=== PATIENT | male | born 1940 | race Caucasian/White ===

== ENCOUNTER 2017-05-18 11:34 | Emergency (ER) | payer BC ==
[~2017-05-18] VITALS: Ht 175.3 cm; Wt 76.0 kg
[2017-05-18 11:41] VITALS: TEMP 36.8; Ht 175.3 cm; Wt 76.0 kg
[2017-05-18] MEDS ORDERED: SODIUM CHLORIDE 0.9% 1000ML 1,000 ML IV SCH (12:16)
[2017-05-18 12:21] VITALS: O2SAT 97
--- NOTE | 2017-05-18 12:24 | EMERGENCY ROOM VISIT NOTE ---
History Report prepared by Sylvainibe: Marta Kruger Under the Supervision of: Dr. Ezequiel Gallo D.O. First contact with patient: 12:09 Chief Complaint: STROKE SYMPTOMS Stated Complaint: TINGLING FEELING DOWN LEFT SIDE, WARM ON LT SIDE Nursing Triage Summary: Patient c/c of left sided body warmness. Patient reports that his heat turned on last night and since then his left side of his body is warm. He initially reported this as numbness; however, after assessment it is determined this as warm feeling. Negative headache, acute vision changes, nausea, vomiting, diaphoresis, fever, chills. Patient does have a stutter, which is chronic. History of Present Illness The patient is a 77 year old male who presents to the Emergency Room with complaints of possible stroke symptoms that started last night. He reports the heat unexpectedly came on in his home last night around 1999. He turned his heat off, but states the left side of his body remained "warm and tingly", like a "heat source was still coming at me". He reports he was reading and working on his laptop when the symptoms started. He denies feeling like his speech has been affected. He denies any facial droop, vision changes, headache, fevers, chills, diaphoresis, nausea, vomiting or diarrhea. The patient reports he takes no daily medications. He denies any history of an irregular heartbeat, atrial fibrillation or cardiac problems. He has never undergone any major surgery before. His PCP is Dr. Grijalva with [facility]. He denies any tobacco or drug use but does drink alcohol occasionally. Source of History: patient Onset: 1999 last night Position: other (left side of body) Timing: other (persistent) Associated Symptoms: + numbness (numbness and tingling in left side of body) , No fevers, No chills, No headache, No diaphoresis, No nausea, No vomiting, No diarrhea Review of Systems See HPI for pertinent positives & negatives. A total of 10 systems reviewed and were otherwise negative. Past Medical & Surgical Medical Problems: (1) No significant past medical history Social History Smoking Status: Never Smoker Smokeless Tobacco Use: No Alcohol Use: occasionally Drug Use: none Marital Status: single, Housing Status: lives alone Occupation Status: retired Current/Historical Medications No Active Prescriptions or Reported Meds Allergies Coded Allergies: No Known Allergies (Unverified , 05/18/17) Physical Exam Vital Signs Date Time Temp Pulse Resp B/P (MAP) Pulse Ox O2 Delivery O2 Flow Rate FiO2 05/18/17 15:14 65 16 159/88 97 05/18/17 13:34 62 21 96 05/18/17 12:34 65 96 05/18/17 12:21 97 Room Air 05/18/17 12:04 72 19 98 05/18/17 12:04 77 05/18/17 11:59 174/82 05/18/17 11:59 60 16 114/78 98 05/18/17 11:41 36.8 82 20 171/93 99 Room Air Physical Exam GENERAL: Patient is awake, alert, in no acute distress patient is resting comfortably and showing no signs of anxiety EYES: The conjunctivae are clear. The pupils are round and reactive. EARS, NOSE, MOUTH AND THROAT: The nose is without any evidence of any deformity. Mucous membranes are moist tongue is midline NECK: The neck is nontender and supple. No bruits noted to auscultation. No bruits noted to auscultation. RESPIRATORY: Normal respiratory effort is noted there is no evidence of wheezing rhonchi or rales CARDIOVASCULAR: Regular rate and rhythm noted there no murmurs rubs or gallops normal S1 normal S2 GASTROINTESTINAL: The abdomen is soft. Bowel sounds are present in all quadrants. Abdomen is nontender MUSCULOSKELETAL/EXTREMITIES: There is no evidence of gross deformity full range of motion is noted in the hips and shoulders SKIN: There is no obvious evidence of any rash. There are no petechiae, pallor or cyanosis noted. NEUROLOGIC: Patient is awake alert and oriented x3 strength is symmetric patellar reflexes are 2+ bilaterally Medical Decision & Procedures ER Provider Diagnostic Interpretation: Radiology results as stated below per my review and radiologist interpretation: CT SCAN OF THE BRAIN WITHOUT IV CONTRAST CLINICAL HISTORY: Sensation of left-sided body warmness. Clinical concern for stroke. COMPARISON STUDY: No priors. TECHNIQUE: Unenhanced axial CT scan of the brain is performed from the vertex to the skull base. CT DOSE: 638.56 mGycm FINDINGS: Brain parenchyma: There are age-related involutional changes noting mild subcortical and periventricular microangiopathic change. There is no hemorrhage, mass effect, or evidence of acute territorial ischemia by CT criteria. Salazar-white matter is preserved. No extra-axial fluid collection is seen. Ventricles, sulci, cisterns: Prominent secondary to involutional change. Intracranial vasculature: Intracranial vessels at the skull base are normal as visualized. Calvarium: Unremarkable. Sinuses and mastoids: The visualized paranasal sinuses are clear. The mastoid air cells are well pneumatized. Orbits: The bony orbits are grossly intact. IMPRESSION: There is no hemorrhage, mass effect, or evidence of acute territorial ischemia by CT criteria. Electronically signed by: Danial Alexis M.D. 05/18/2017 1:16 PM Laboratory Results 05/18/17 11:55 Red Blood Count 5.11, Mean Corpuscular Volume 94.1, Mean Corpuscular Hemoglobin 31.7, Mean Corpuscular Hemoglobin Concent 33.7, Mean Platelet Volume 12.1, Neutrophils (%) (Auto) 59.2, Lymphocytes (%) (Auto) 27.1, Monocytes (%) (Auto) 9.7, Eosinophils (%) (Auto) 3.1, Basophils (%) (Auto) 0.7, Neutrophils # (Auto) 3.48, Lymphocytes # (Auto) 1.59, Monocytes # (Auto) 0.57, Eosinophils # (Auto) 0.18, Basophils # (Auto) 0.04 05/18/17 11:55 Test 05/18/17 11:55 White Blood Count 5.87 K/uL (4.8-10.8) Red Blood Count 5.11 M/uL (4.7-6.1) Hemoglobin 16.2 g/dL (14.0-18.0) Hematocrit 48.1 % (42-52) Mean Corpuscular Volume 94.1 fL (80-100) Mean Corpuscular Hemoglobin 31.7 pg (25-34) Mean Corpuscular Hemoglobin Concent 33.7 g/dl (32-36) Platelet Count 222 K/uL (130-400) Mean Platelet Volume 12.1 fL (7.4-10.4) Neutrophils (%) (Auto) 59.2 % Lymphocytes (%) (Auto) 27.1 % Monocytes (%) (Auto) 9.7 % Eosinophils (%) (Auto) 3.1 % Basophils (%) (Auto) 0.7 % Neutrophils # (Auto) 3.48 K/uL (1.4-6.5) Lymphocytes # (Auto) 1.59 K/uL (1.2-3.4) Monocytes # (Auto) 0.57 K/uL (0.11-0.59) Eosinophils # (Auto) 0.18 K/uL (0-0.5) Basophils # (Auto) 0.04 K/uL (0-0.2) RDW Standard Deviation 47.0 fL (36.4-46.3) RDW Coefficient of Variation 13.5 % (11.5-14.5) Immature Granulocyte % (Auto) 0.2 % Immature Granulocyte # (Auto) 0.01 K/uL (0.00-0.02) Prothrombin Time 10.7 SECONDS (9.0-12.0) Prothromb Time International Ratio 1.0 (0.9-1.1) Activated Partial Thromboplast Time 26.6 SECONDS (21.0-31.0) Partial Thromboplastin Ratio 1.0 Anion Gap 7.0 mmol/L (3-11) Est Creatinine Clear Calc Drug Dose 50.8 ml/min Estimated GFR () 66.7 Estimated GFR (Non- 57.6 BUN/Creatinine Ratio 15.2 (10-20) Calcium Level 9.1 mg/dl (8.5-10.1) Total Bilirubin 0.9 mg/dl (0.2-1) Direct Bilirubin 0.2 mg/dl (0-0.2) Aspartate Amino Transf (AST/SGOT) 23 U/L (15-37) Alanine Aminotransferase (ALT/SGPT) 31 U/L (12-78) Alkaline Phosphatase 54 U/L (45-117) Total Creatine Kinase 101 U/L (39-308) Creatine Kinase MB 2.4 ng/ml (0.5-3.6) Creatine Kinase MB Ratio 2.4 (0-3.0) Troponin I < 0.015 ng/ml (0-0.045) Total Protein 7.9 gm/dl (6.4-8.2) Albumin 4.2 gm/dl (3.4-5.0) Laboratory results per my review. Medications Administered Medications (Trade) Dose Ordered Sig/Aura Route Start Time Stop Time Status Last Admin Dose Admin Sodium Chloride 1,000 ml @ 50 mls/hr Q20H IV 05/18/17 12:16 05/18/17 15:32 DC 05/18/17 12:23 50 MLS/HR ECG Indication: weakness Rate (beats per minute): 65 Rhythm: normal sinus Findings: no ectopy, other (No acute ST segment abnormalities) Comparison ECG Date: no prior available ED Course 1215: The patient was evaluated in room C6. A complete history and physical examination were performed. 1216: NSS 1000 ml @ 50 mls/hr IV. 1500: I reevaluated the patient. He is feeling well and resting comfortably. I discussed his results and discharge instructions and he verbalized complete understanding and agreement. Medical Decision Prior records/ancillary studies reviewed and summarized above. Nursing notes reviewed. Differential diagnosis: Etiologies such as metabolic, infection, hypo/hyperglycemia, electrolyte abnormalities, cardiac sources, intracerebral event, toxicologic, neurologic, as well as others were entertained. The patient is a 77-year-old male who presented to the emergency department for an evaluation of left-sided numbness. The patient had ongoing symptoms throughout the day. He feels as though his symptoms actually began last evening. The patient did not have any focal neurologic deficits on physical examination. I discussed the patient's laboratory radiographic studies with him. I also recommended further testing such as MRI the brain echocardiogram and carotid Dopplers. The patient asked if he could follow-up with his primary care physician for these tests. I offered to have the patient evaluated by the hospitalist for possible inpatient management at this time the patient prefers to follow-up with his primary care physician. He was given TIA discharge instructions and encouraged to return to the emergency department immediately if symptoms change worsen or the need arises. Medication Reconcilliation Current Medication List: was personally reviewed by me Blood Pressure Screening Patient's blood pressure: Elevated blood pressure Blood pressure disposition: Referred to PCP Impression Primary Impression: TIA (transient ischemic attack) Scribe Attestation The scribe's documentation has been prepared under my direction and personally reviewed by me in its entirety. I confirm that the note above accurately reflects all work, treatment, procedures, and medical decision making performed by me. Departure Information Dispostion Home / Self-Care Prescriptions No Active Prescriptions or Reported Meds Referrals Juan A Grijalva III, M.D. (PCP) Patient Instructions My [facility], TIA Additional Instructions Call your family to schedule a follow-up appointment. Start taking a baby aspirin every morning. Discussed the possibility with your family doctor that you may require further studies such as an MRI the brain an echocardiogram of the heart and carotid Dopplers to further evaluate the cause your symptoms. Return to the emergency department immediately if symptoms change worsen or the need arises. Problem Qualifiers Primary Impression: TIA (transient ischemic attack) Transient cerebral ischemia type: unspecified Qualified Codes: G45.9 - Transient cerebral ischemic attack, unspecified
[2017-05-18 13:06] LABS: BASO % 0.7 %; BASO ABS # 0.04 K/uL (0-0.2); COMPLETE YES; EOS % 3.1 %; HEMATOCRIT 48.1 % (42-52); IG% 0.2 %; LYMPH % 27.1 %; LYMPH ABS # 1.59 K/uL (1.2-3.4); MEAN CELL VOLUME 94.1 fL (80-100); MEAN CORPUSCULAR HEMOGLOBIN 31.7 pg (25-34); MEAN CORPUSCULAR HGB CONC 33.7 g/dl (32-36); MEAN PLATELET VOLUME 12.1 fL (7.4-10.4); MONO % 9.7 %; NEUT % 59.2 %; PLATELET COUNT 222 K/uL (130-400); RED BLOOD COUNT 5.11 M/uL (4.7-6.1); WHITE BLOOD COUNT 5.87 K/uL (4.8-10.8)
[2017-05-18 13:16] LABS: PROTHROMBIN TIME (PATIENT) 10.7 SECONDS (9.0-12.0)
--- NOTE | 2017-05-18 13:17 | DIAGNOSTIC IMAGING REPORT ---
CT SCAN OF THE BRAIN WITHOUT IV CONTRAST CLINICAL HISTORY: Sensation of left-sided body warmness. Clinical concern for stroke. COMPARISON STUDY: No priors. TECHNIQUE: Unenhanced axial CT scan of the brain is performed from the vertex to the skull base. CT DOSE: 638.56 mGycm FINDINGS: Brain parenchyma: There are age-related involutional changes noting mild subcortical and periventricular microangiopathic change. There is no hemorrhage, mass effect, or evidence of acute territorial ischemia by CT criteria. Salazar-white matter is preserved. No extra-axial fluid collection is seen. Ventricles, sulci, cisterns: Prominent secondary to involutional change. Intracranial vasculature: Intracranial vessels at the skull base are normal as visualized. Calvarium: Unremarkable. Sinuses and mastoids: The visualized paranasal sinuses are clear. The mastoid air cells are well pneumatized. Orbits: The bony orbits are grossly intact. IMPRESSION: There is no hemorrhage, mass effect, or evidence of acute territorial ischemia by CT criteria. Electronically signed by: Danial Alexis M.D. 05/18/2017 1:16 PM Dictated Date/Time: 05/18/2017 1:14 PM
[2017-05-18 13:18] LABS: ALT/SGPT 31 U/L (12-78); BLOOD UREA NITROGEN 18 mg/dl (7-18); BUN/CREATININE RATIO 15.2 (10-20); CALCIUM 9.1 mg/dl (8.5-10.1); CARBON DIOXIDE 29 mmol/L (21-32); CHLORIDE 103 mmol/L (98-107); GLUCOSE 153 mg/dl (70-99); POTASSIUM 3.5 mmol/L (3.5-5.1); SODIUM 139 mmol/L (136-145)
[2017-05-18 13:23] LABS: ALKALINE PHOSPHATASE 54 U/L (45-117); AST/SGOT 23 U/L (15-37); CKMB/CK RATIO 2.4 (0-3.0)
[2017-05-18 15:14] VITALS: BP 159/88; PULSE 65; O2SAT 97
== END 2017-05-18 15:15 | disposition home or self-care (01) ==
LOC: C.EDB 11:36 → C.EDC 15:15
DX: G45.9 Transient cerebral ischemic attack, unspecified (principal)